=== PATIENT | female | born 1970 | race Caucasian/White ===

== ENCOUNTER → 2017-12-30 | Outpatient (CLI) | payer BC ==
[2017-12-30 12:44] LABS: MAGNESIUM LEVEL 2.2 MG/DL (1.8-2.4)
== END ==
LOC: M WUC 08:28
DX: K21.9 Gastro-esophageal reflux disease without esophagitis (principal); K44.9 Diaphragmatic hernia without obstruction or gangrene; F45.8 Other somatoform disorders; R41.0 Disorientation, unspecified; R41.1 Anterograde amnesia; K58.9 Irritable bowel syndrome, unspecified; E55.9 Vitamin D deficiency, unspecified
CPT/HCPCS: 83735

== ENCOUNTER → 2018-04-30 | Outpatient (CLI) | payer BC ==
--- NOTE | 2018-04-30 11:00 | REP ---
PA and lateral chest: Comparison is 01/12/2010. There is an acute infiltrate in the left upper lobe laterally as an interval change. Right lung is clear. There are no pleural effusions. The cardiac size is normal. The elena, mediastinum, skeletal structures are unremarkable. Impression: Acute left lobe infiltrate as an interval change. Electronically Signed by Red Ricardo MD 04/30/2018 10:51 A
== END ==
LOC: M WUC 10:14
PROVIDERS: ATTEND Physician Assistant
DX: R91.8 Other nonspecific abnormal finding of lung field (principal); R05 Cough

== ENCOUNTER → 2019-09-07 | Outpatient (CLI) | payer BC | LOC: M LABSMTC 13:31 | PROVIDERS: ATTEND Pediatrics | DX: Z11.59 Encounter for screening for other viral diseases (principal) ==

== ENCOUNTER → 2020-02-15 | Outpatient (CLI) | payer BC ==
--- NOTE | 2020-02-15 09:37 | REP ---
INDICATION: ENC SCREEN FOR MALIGNANT NEOPLASM OF BREAST. COMPARISON: 08/31/2012 and 03/02/2009. TECHNIQUE: MLO and CC views bilateral breasts performed with tomosynthesis. FINDINGS: Moderate heterogeneous fibroglandular tissue is present bilaterally. There appears to be an oval smoothly marginated nodule at about 6 o'clock position right breast, measuring approximately 2.0 x 1.2 cm. In the outer lower left breast tiny calcifications present which require further evaluation with magnification views. No other suspicious mass or clusters of microcalcifications are seen bilaterally. The Volpara volumetric breast density pattern is B. IMPRESSION: BIRADS/ACR category 0 incomplete. Oval nodule 6 o'clock right breast 2.0 x 1.2 cm. Recommend spot compression views and ultrasound to further evaluate. Tiny calcifications grouped in the lower lateral left breast. Recommend magnification views to further evaluate. This patient's Tyrer-Cuzick lifetime breast cancer risk assessment score is 12.6%. This mammogram was interpreted with the aid of an FDA-approved computer-aided detection system. The patient states she had a clinical breast exam in March 2019. The patient letter being requested is M0. RECOMMENDATION: Recommend spot compression views and ultrasound right breast, magnification views left breast, as detailed above. <Electronically signed by Red Wadsworth > 02/15/20 [id number]
== END ==
LOC: M WHC 08:16
PROVIDERS: ATTEND Nurse Practitioner
DX: R92.8 Other abnormal and inconclusive findings on diagnostic imaging of breast (principal)

== ENCOUNTER → 2020-03-02 | Outpatient (CLI) | payer BC ==
--- NOTE | 2020-03-02 15:28 | REP ---
INDICATION: Bilateral additional views; ADDL VIEWS/R BREAST NODULE; RIGHT BREAST NODULE. COMPARISON: 02/15/2020 and 08/31/2012. TECHNIQUE: Spot compression magnification views are performed of each breast. Focused right breast ultrasound performed in the region of 6-7 o'clock. FINDINGS: There is an oval smoothly marginated nodule confirmed in the region of 6-7 o'clock right breast approximately 2 cm in diameter. Focused right breast ultrasound is performed at that location. There is an oval hypoechoic nodule which does not represent a simple cyst, located at 7 o'clock, measuring approximately 2.0 x 1.7 x 0.7 cm. With Doppler evaluation there is not significant increased flow internally. On the left magnification views are performed of the outer aspect. In this region there is a cluster of fibers 6 microcalcifications which appear somewhat pleomorphic. IMPRESSION: BIRADS/ACR category 4 suspicious findings bilaterally. In the right breast at 6-7 o'clock an oval nodule is identified mammographically and sonographically, likely solid. Recommend ultrasound-guided biopsy with postprocedure mammogram. In the outer left breast there are clustered pleomorphic microcalcifications. Recommend stereotactic biopsy. This mammogram was interpreted with the aid of an FDA-approved computer-aided detection system. The patient letter being requested is M4. RECOMMENDATION: Recommend bilateral biopsy as discussed above. <Electronically signed by Red Wadsworth > 03/02/20 [id number]
== END ==
LOC: M WHC 10:49
PROVIDERS: ATTEND Nurse Practitioner
DX: R92.8 Other abnormal and inconclusive findings on diagnostic imaging of breast (principal); N63.10 Unspecified lump in the right breast, unspecified quadrant
CPT/HCPCS: 76642; 77066; G0279

== ENCOUNTER → 2020-04-18 | Outpatient (CLI) | payer BC ==
[~2020-04-18] MED LIST: LEVO175C PO; WELLTAB38 PO
[2020-04-18 09:54] VITALS: BP 120/82
--- NOTE | 2020-04-18 11:21 | REP ---
INDICATION: R92.8 ABN MAMMO RT BREAST,POST US GUIDED BIOPSY. Clip placement views. The patient is status post ultrasound-guided needle biopsy procedure right breast 7 o'clock position. COMPARISON: Comparison mammography March 02, 2020 and February 15, 2020. TECHNIQUE: Craniocaudal and mediolateral oblique views of the right breast are obtained. This mammogram was interpreted with the aid of an FDA-approved computer-aided detection system. FINDINGS: Heterogeneously dense fibroglandular tissue is seen. In the 0 biopsy marker clip is noted within the nodular opacity observed on previous mammography. The Volpara volumetric breast density pattern is C. IMPRESSION: Marker clip in good position. RECOMMENDATION: Pending biopsy results. <Electronically signed by Bharathi Combs > 04/18/20 [id number]
--- NOTE | 2020-04-18 16:23 | REP ---
INDICATION: R92.8 ABN MAMMO RT BREAST,US GUIDED BIOPSY. Right breast lesion at 7 o'clock position. COMPARISON: Comparison sonography March 02, 2020.. TECHNIQUE: Sonographic guidance. FINDINGS: Ultrasound guidance is provided to Dr. Dempsey performed ultrasound-guided needle biopsy procedure and HydroMARK clip placement. IMPRESSION: Sonographic guidance. <Electronically signed by Bharathi Combs > 04/18/20 [id number]
== END ==
LOC: M WHCPRO 08:47
PROVIDERS: ATTEND Surgery
DX: R92.8 Other abnormal and inconclusive findings on diagnostic imaging of breast (principal)

== ENCOUNTER → 2021-05-07 | Outpatient (CLI) | payer BC | LOC: M WHC 12:45 | PROVIDERS: ATTEND Surgery | DX: R92.8 Other abnormal and inconclusive findings on diagnostic imaging of breast (principal) ==

== ENCOUNTER → 2023-03-10 | Outpatient (CLI) | payer BC ==
[2023-03-10 14:23] LABS: BASO % 0.6 % (0.0-1.0); EOS # 0.2 10^3/uL (0.0-0.5); EOS % 2.3 % (0.0-3.0); HEMATOCRIT 44.6 % (36.0-47.0); HEMOGLOBIN 14.7 g/dl (12.0-15.5); LYMPH # 2.3 10^3/uL (1.5-5.0); LYMPH % 32.1 % (24.0-44.0); MEAN CORPUSCULAR HEMOGLOBIN 31.2 pg (27.0-33.0); MEAN CORPUSCULAR VOLUME 94.7 fl (80.0-96.0); MONO # 0.6 10^3/uL (0.0-0.8); MONO % 8.5 % (2.0-8.0); NEUTROPHILS # 3.9 10^3/uL (1.5-8.5); NEUTROPHILS % 56.1 % (36.0-66.0); PLATELET COUNT, AUTOMATED 218 10^3/uL (150-450); RED BLOOD COUNT 4.71 10^6/uL (4.00-5.40)
[2023-03-10 14:30] LABS: ALBUMIN 4.4 G/DL (3.2-5.2); ALKALINE PHOSPHATASE 71 U/L (46-116); ALT/SGPT 57 U/L (7.0-40); AST/SGOT 24 U/L (<34); BILIRUBIN,TOTAL 0.5 MG/DL (0.3-1.2); BLOOD UREA NITROGEN 17 MG/DL (9-23); CALCIUM LEVEL 9.6 MG/DL (8.5-10.1); CARBON DIOXIDE LEVEL 29 MMOL/L (20-31); CHLORIDE LEVEL 107 MMOL/L (98-107); CREATININE FOR GFR 0.91 MG/DL (0.55-1.30); GLOMERULAR FILTRATION RATE > 60.0 (>51); GLUCOSE, FASTING 98 MG/DL (60-100); POTASSIUM SERUM 4.1 MMOL/L (3.5-5.1); SODIUM LEVEL 140 MMOL/L (136-145); TOTAL PROTEIN 7.6 G/DL (5.7-8.2)
[2023-03-10 14:34] LABS: THYROID STIMULATING HORMONE 12.341 uIU/ML (0.55-4.78)
== END ==
LOC: M WUC 09:49
PROVIDERS: ATTEND Family Medicine
DX: K58.1 Irritable bowel syndrome with constipation (principal); E03.9 Hypothyroidism, unspecified; M25.562 Pain in left knee; M21.162 Varus deformity, not elsewhere classified, left knee

== ENCOUNTER 2024-09-19 03:27 | Emergency (ER) | payer BC ==
[~2024-09-19] VITALS: Ht 170.2 cm; Wt 101.8 kg
[~2024-09-19 03:27] MED LIST changes: -LEVO175C PO; +LEVO175C2 PO
[2024-09-19 05:14] LABS: BASO # 0.1 10^3/uL (0.0-0.2); BASO % 0.6 % (0.0-1.0); EOS # 0.2 10^3/uL (0.0-0.5); EOS % 1.9 % (0.0-3.0); LYMPH # 2.5 10^3/uL (1.5-5.0); LYMPH % 31.0 % (24.0-44.0); MONO # 0.8 10^3/uL (0.0-0.8); MONO % 9.6 % (2.0-8.0); NEUTROPHILS # 4.6 10^3/uL (1.5-8.5); NEUTROPHILS % 56.5 % (36.0-66.0); PLATELET COUNT, AUTOMATED 194 10^3/uL (150-450)
[2024-09-19] MEDS: FAMOTIDINE 20 MG/2 ML VIAL IVP ONE (05:28)
[2024-09-19 05:40] LABS: CK-MB VALUE MASS < 1.0 NG/ML (<3.6)
[2024-09-19 05:42] LABS: ALT/SGPT 70 U/L (7.0-40); AST/SGOT 34 U/L (<34); CALCIUM LEVEL 9.6 MG/DL (8.5-10.1); CARBON DIOXIDE LEVEL 24 MMOL/L (20-31); CHLORIDE LEVEL 105 MMOL/L (98-107); CPK CREATINE PHOSPHOKINASE 85 U/L (34-145); CREATININE FOR GFR 0.93 MG/DL (0.55-1.30); GLOMERULAR FILTRATION RATE 72.6 (>51); POTASSIUM SERUM 4.1 MMOL/L (3.5-5.1); SODIUM LEVEL 143 MMOL/L (136-145)
[2024-09-19] MEDS: GASTROGRAFIN SOLUTION 30ML PO SCH (06:03)
[2024-09-19 06:25] LABS: KETONE, URINE AUTO RFX 1+ mg/dL (NEGATIVE); LEUKOCYTE ESTERASE UR AUTO RFX TRACE (NEGATIVE); MUCUS, URINE RFX SMALL (NEGATIVE); NITRITE, URINE AUTO RFX NEGATIVE (NEGATIVE); RBC, URINE AUTO RFX 1 /HPF (0-3); SQUAM EPITHELIAL CELL UR AURFX 2 /HPF (0-6); WBC, URINE AUTO RFX 5 /HPF (0-3)
[2024-09-19] MEDS: ONDANSETRON 4MG 2ML VIAL IV ONE (06:26)
[2024-09-19] MEDS: ACETAMINOPHEN *IV* 1,000 MG in IV 1 EA IV ONE (06:27)
[2024-09-19] MEDS: LIDOCAINE 4% CREAM 5 GM (LMX4) TOP ONE (06:27)
[2024-09-19] MEDS ORDERED: ISOVUE-370 76% 100 ML VIAL As Ordered ONE (07:22)
[2024-09-19] MEDS ORDERED: VALT1TAB PO (08:31)
[2024-09-19] MEDS ORDERED: COLA100C5 PO (08:33)
[2024-09-19] MEDS ORDERED: PERC5TAB12 PO (08:35)
[2024-09-19] MEDS: MAGNESIUM CITRATE 300 ML BTL PO ONE (08:42)
[2024-09-19] MEDS: PERCOCET 5MG/325MG TAB PO ONE (08:42)
[2024-09-19 08:55] VITALS: BP 137/81; TEMP 96.2; O2SAT 94
== END 2024-09-19 09:03 | disposition home or self-care (01) ==
LOC: M ED 03:27
DX: B02.9 Zoster without complications (principal); K59.00 Constipation, unspecified; E03.9 Hypothyroidism, unspecified; Z79.899 Other long term (current) drug therapy; Z88.0 Allergy status to penicillin; Z91.040 Latex allergy status
CPT/HCPCS: 74021; 74177; 80053; 80076; 81001; 82550; 82553; 83605; 83690; 84484; 85025; 87086; 93005; 93041; 96365; 96375; 99284; J0131; J1308; J2405; Q9963; Q9967

== ENCOUNTER → 2024-10-03 | Outpatient (CLI) | payer BC ==
[~2024-10-03] MED LIST changes: +COLA100C5 PO; +PERC5TAB12 PO; +VALT1TAB PO
[2024-10-03 12:41] LABS: APPEARANCE, URINE TURBID (CLEAR); BACTERIA, URINE AUTO NEGATIVE (NEGATIVE); BILIRUBIN, URINE AUTO NEGATIVE (NEGATIVE); BLOOD, URINE BLOOD NEGATIVE (NEGATIVE); GLUCOSE, URINE (UA) AUTO NEGATIVE (NEGATIVE); KETONE, URINE AUTO NEGATIVE (NEGATIVE); LEUKOCYTE ESTERASE, URINE AUTO NEGATIVE (NEGATIVE); MUCUS, URINE SMALL (NEGATIVE); NITRITE, URINE AUTO NEGATIVE (NEGATIVE); PROTEIN, URINE AUTO NEGATIVE (NEGATIVE); RBC, URINE AUTO 0 /HPF (0-3); SPECIFIC GRAVITY URINE AUTO 1.024 (1.002-1.035); SQUAMOUS EPITHELIAL CELL UR AU 9 /HPF (0-6); UROBILINOGEN, URINE AUTO 0.2 mg/dL (0.0-2.0); WBC, URINE AUTO 2 /HPF (0-3)
[2024-10-03 12:52] LABS: BASO # 0.1 10^3/uL (0.0-0.2); BASO % 1.0 % (0.0-1.0); EOS # 0.3 10^3/uL (0.0-0.5); EOS % 3.6 % (0.0-3.0); LYMPH # 2.2 10^3/uL (1.5-5.0); LYMPH % 31.8 % (24.0-44.0); MONO # 0.7 10^3/uL (0.0-0.8); MONO % 10.2 % (2.0-8.0); NEUTROPHILS # 3.7 10^3/uL (1.5-8.5); NEUTROPHILS % 53.1 % (36.0-66.0); PLATELET COUNT, AUTOMATED 188 10^3/uL (150-450)
[2024-10-03 12:57] LABS: ALT/SGPT 77.0 U/L (7.0-40); AST/SGOT 41.0 U/L (<34); CALCIUM LEVEL 9.2 MG/DL (8.5-10.1); CARBON DIOXIDE LEVEL 27.0 MMOL/L (20-31); CHLORIDE LEVEL 109.0 MMOL/L (98-107); CREATININE FOR GFR 1.02 MG/DL (0.55-1.30); GLOMERULAR FILTRATION RATE 65.0 (>51); POTASSIUM SERUM 4.3 MMOL/L (3.5-5.1); SODIUM LEVEL 145.0 MMOL/L (136-145)
== END ==
LOC: M WUC 08:14
PROVIDERS: ATTEND Family Medicine
DX: E03.9 Hypothyroidism, unspecified (principal); E78.5 Hyperlipidemia, unspecified; J30.9 Allergic rhinitis, unspecified

== ENCOUNTER → 2024-11-24 | Outpatient (CLI) | payer BC | LOC: M WUC 10:36 | PROVIDERS: ATTEND Family Medicine | DX: E03.9 Hypothyroidism, unspecified (principal) ==